=== PATIENT | female | born 1955 | race Caucasian/White ===

== ENCOUNTER 2017-04-22 11:58 | Day surgery (SDC) | payer OTHER ==
[2017-04-22] MEDS ORDERED: FENTAnyl 50 MCG/ML VIAL (14:23)
[2017-04-22] MEDS ORDERED: MIDAZOLAM 1 MG/ML 2 ML INJ ×2 (14:23)
== END 2017-04-22 16:35 | disposition home or self-care (01) ==
LOC: GIL 11:58
DX: Z12.11 Encounter for screening for malignant neoplasm of colon (principal); D12.5 Benign neoplasm of sigmoid colon; K57.30 Diverticulosis of large intestine without perforation or abscess without bleeding; K64.8 Other hemorrhoids; E11.9 Type 2 diabetes mellitus without complications
CPT/HCPCS: 45385; 88305